=== PATIENT | male | born 1955 | race Caucasian/White ===

== ENCOUNTER → 2019-04-16 | Outpatient (CLI) | payer BC | END | disposition home or self-care (01) | LOC: RAH 09:57 | PROVIDERS: ATTEND Internal Medicine | DX: I63.81 Other cerebral infarction due to occlusion or stenosis of small artery (principal); I67.82 Cerebral ischemia | CPT/HCPCS: 70450 ==

== ENCOUNTER → 2019-06-17 | Outpatient (CLI) | payer BC | END | disposition home or self-care (01) | LOC: SHCH 14:07 | PROVIDERS: ATTEND Internal Medicine Cardiovascular Disease | DX: R06.09 Other forms of dyspnea (principal) | CPT/HCPCS: 93306; 93356 ==

== ENCOUNTER → 2019-07-06 | Outpatient (CLI) | payer BC | END | disposition home or self-care (01) | LOC: SHCH 12:46 | PROVIDERS: ATTEND Internal Medicine Cardiovascular Disease | DX: I87.2 Venous insufficiency (chronic) (peripheral) (principal) | CPT/HCPCS: 93970 ==